=== PATIENT | female | born 1995 | race Caucasian/White ===

== ENCOUNTER 2016-10-27 17:31 | Outpatient (CLI) | payer SELFPAY ==
[2016-10-27 18:07] VITALS: BP 116/57; PULSE 82; RESP 16; TEMP 98
[2016-10-27 18:11] LABS: Appearance,Urine Clear (Clear); Bilirubin,Urine Negative (Negative); Glucose,Urine (UA) Negative (Negative); Ketones,Urine Trace (Negative); Leukocyte Esterase,Urine Negative (Negative); Nitrite,Urine Negative (Negative); Protein,Urine Negative (Negative); Specific Gravity,Urine 1.006 (1.001-1.035); UA Billing (MACRO vs. MICRO) CHEM; Urobilinogen,Urine <2.0 mg/dL (<2.0)
--- NOTE | 2016-12-03 13:16 | P.MSEPDOC ---
Presenting Problems - Arrival Data Date of Arrival on Unit: 10/27/16 Time of Arrival on Unit: 17:31 Mode of Transport: Ambulatory - Complaint OB-Reason for Admission/Chief Complaint: Pain, Signs/Symptoms UTI Comment: abd pain Medical History - Information : 1 Para: 0 Term: 0 : 0 Abortions: Spontaneous or Elective: 0 Number of Living Children: 0 - Gestational Age Expected Date of Delivery: 02/19/17 Gestational Age by MEGHNA (wks/days): 28 Weeks and 6 Days Review of Systems - Review of Systems Constitutional: No problems Breast: No problems ENT: No problems Cardiovascular: No problems Respiratory: No problems Gastrointestinal: No problems Genitourinary: No problems Musculoskeletal: No problems Neurological: No problems Skin: No problems Vital Signs - Temperature Temperature: 98.0 F Temperature Source: Oral - Pulse Right Brachial Pulse Rate: 82 Pulse Assessment Method: Automatic Cuff - Respirations Respiratory Rate: 16 Oxygen Delivery Method: Room Air O2 Sat by Pulse Oximetry: 97 - Blood Pressure Right Arm Blood Pressure: 116/57 Blood Pressure Mean: 76 Blood Pressure Source: Automatic Cuff Medical Screen Scoring (Pre) - Assessment Baseline FHR: 150 Heart Rate - NICHD Category: Category I (Normal) = 0 - Total Score Total Score (Pre): 0 - Level of Risk Level of Risk: Low (0-5) Physician Notification (Pre) - Physician Notified Physician Notified Date: 10/27/16 Physician Notified Time: 18:00 Spoke With: Lulu Hope Order Received: Yes - Notification Comment Comment: order received for UA Disposition - Disposition OB Disposition: Discharge to home Discharge Date: 10/27/16 Discharge Time: 18:26 I agree with the RN Medical Screening Exam: Yes Risk & Benefit of care provided described in d/c instruction: Yes Diagnosis: URINARY TRACT INFECTION, SITE NOT SPECIFIED
== END 2016-10-27 18:26 | disposition home or self-care (01) ==
LOC: FBPOP 17:31
PROVIDERS: ATTEND Obstetrics & Gynecology
DX: O23.43 Unspecified infection of urinary tract in pregnancy, third trimester (principal); Z3A.28 28 weeks gestation of pregnancy
CPT/HCPCS: 81003; 99213

== ENCOUNTER 2016-11-09 20:44 | Outpatient (CLI) | payer SELFPAY ==
[2016-11-09 21:20] VITALS: BP 121/61; PULSE 82; RESP 16; TEMP 98
[2016-11-09 21:26] LABS: Appearance,Urine Clear (Clear); Bilirubin,Urine Negative (Negative); Glucose,Urine (UA) Negative (Negative); Ketones,Urine 3+ (Negative); Leukocyte Esterase,Urine Negative (Negative); Nitrite,Urine Negative (Negative); PH, Urine 6.5 (5.0-8.0); Protein,Urine Negative (Negative); Specific Gravity,Urine 1.007 (1.001-1.035); UA Billing (MACRO vs. MICRO) CHEM; Urobilinogen,Urine <2.0 mg/dL (<2.0)
--- NOTE | 2016-11-10 07:10 | P.MSEPDOC ---
Presenting Problems - Arrival Data Date of Arrival on Unit: 11/09/16 Time of Arrival on Unit: 20:44 Mode of Transport: Ambulatory - Complaint OB-Reason for Admission/Chief Complaint: Pain Comment: sharp constant b/l flank and suprapubic pain since early this AM. Medical History - Information : 1 Para: 0 Term: 0 : 0 Abortions: Spontaneous or Elective: 0 Number of Living Children: 0 - Gestational Age Expected Date of Delivery: 02/19/17 Gestational Age by MEGHNA (wks/days): 25 Weeks and 4 Days - History Complications: Other Comment: UTIs x 2 Review of Systems - Review of Systems Constitutional: No problems Breast: No problems ENT: No problems Cardiovascular: No problems Respiratory: No problems Gastrointestinal: No problems Genitourinary: Dysuria Musculoskeletal: No problems Neurological: No problems Skin: No problems Vital Signs - Temperature Temperature: 98.0 F Temperature Source: Oral - Pulse Right Sitting Brachial Pulse Rate: 82 Pulse Assessment Method: Automatic Cuff - Respirations Respiratory Rate: 16 Oxygen Delivery Method: Room Air - Blood Pressure Right Arm Sitting Blood Pressure: 121/61 Blood Pressure Mean: 81 Blood Pressure Source: Automatic Cuff Medical Screen Scoring (Pre) - Cervical Exam Dilation: Exam Deferred Effacement: Exam Deferred Membranes: Intact - Uterine Contractions Frequency: N/A Duration: N/A Intensity: N/A - Maternal Vital Signs Maternal Temperature: N/A Signs of Preeclampsia: N/A Maternal Respirations: N/A - Maternal Trauma Maternal Trauma: N/A - Assessment Baseline FHR: 150 Heart Rate - NICHD Category: Category I (Normal) = 0 Position: N/A Station: N/A - Total Score Total Score (Pre): 0 - Level of Risk Level of Risk: Low (0-5) Physician Notification (Pre) - Physician Notified Physician Notified Date: 11/09/16 Physician Notified Time: 21:03 Physician/Practitioner Notifed:: dr augustin Spoke With: dr augustin New Order Received: Yes - Notification Comment Comment: UA and culture Disposition - Disposition OB Disposition: Discharge to home Discharge Date: 11/09/16 Discharge Time: 21:33 I agree with the RN Medical Screening Exam: Yes Risk & Benefit of care provided described in d/c instruction: Yes Diagnosis: LOW BACK PAIN
== END 2016-11-09 21:40 | disposition home or self-care (01) ==
LOC: FBPOP 20:44
PROVIDERS: ATTEND Obstetrics & Gynecology
DX: O99.89 Other specified diseases and conditions complicating pregnancy, childbirth and the puerperium (principal); M54.5 Low back pain; Z3A.25 25 weeks gestation of pregnancy
CPT/HCPCS: 81003; 87086; 99213

== ENCOUNTER 2016-11-12 20:03 | Outpatient (CLI) | payer SELFPAY ==
[2016-11-12] MEDS ORDERED: ceFAZolin 2 GM in SODIUM CHLORIDE 0.9% 100 ML IVPB ONE (20:33)
[2016-11-12] MEDS ORDERED: LACTATED RINGERS 1,000 ML IV SCH (20:45)
[2016-11-12 21:20] LABS: Appearance,Urine Cloudy (Clear); Bacteria,Urine Moderate /hpf; Bilirubin,Urine Negative (Negative); Glucose,Urine (UA) 2+ (Negative); Ketones,Urine Negative (Negative); Leukocyte Esterase,Urine Small (Negative); Nitrite,Urine Negative (Negative); PH, Urine 6.5 (5.0-8.0); Particle Count 13383; Protein,Urine Negative (Negative); Specific Gravity,Urine 1.002 (1.001-1.035); Squamous Epithelial Cell,Urine 24 /hpf (0-4); UA Billing (MACRO vs. MICRO) MICRO; Urobilinogen,Urine <2.0 mg/dL (<2.0); WBC,Urine 11 /hpf (0-5)
[2016-11-12 22:07] VITALS: BP 107/58; PULSE 68; RESP 16; TEMP 96.1
--- NOTE | 2016-11-13 11:35 | P.MSEPDOC ---
Presenting Problems - Arrival Data Date of Arrival on Unit: 11/12/16 Time of Arrival on Unit: 20:00 Mode of Transport: EMS - Complaint OB-Reason for Admission/Chief Complaint: Pain, Signs/Symptoms UTI Comment: UTI x2 weeks, incarcerated, DOM Medical History - Information : 1 Para: 0 Term: 0 : 0 Abortions: Spontaneous or Elective: 0 Number of Living Children: 0 - Gestational Age Expected Date of Delivery: 02/19/17 Gestational Age by MEGHNA (wks/days): 26 Weeks and 0 Days - History Complications: Hx. Substance Abuse Comment: DOM, incarcerated, seeks [facility] at [facility] Review of Systems - Review of Systems Constitutional: No problems Breast: No problems ENT: No problems Cardiovascular: No problems Respiratory: No problems Gastrointestinal: No problems Genitourinary: No problems Musculoskeletal: No problems Neurological: No problems Skin: No problems Vital Signs - Temperature Temperature: 96.1 F Temperature Source: Temporal Artery Scan - Pulse Right Pulse Rate: 68 Pulse Assessment Method: Automatic Cuff - Respirations Respiratory Rate: 16 - Blood Pressure Right Arm Blood Pressure: 107/58 Blood Pressure Mean: 74 Blood Pressure Source: Automatic Cuff Medical Screen Scoring (Pre) - Cervical Exam Dilation: Exam Deferred Effacement: Exam Deferred - Uterine Contractions Frequency: N/A Duration: N/A Intensity: N/A - Maternal Vital Signs Maternal Temperature: N/A - Maternal Trauma Maternal Trauma: N/A - Assessment Baseline FHR: 150 Heart Rate - NICHD Category: Category I (Normal) = 0 NST: Reactive Position: N/A - Total Score Total Score (Pre): 0 - Level of Risk Level of Risk: Low (0-5) Physician Notification (Pre) - Physician Notified Physician Notified Date: 11/12/16 Physician Notified Time: 20:25 Physician/Practitioner Notifed:: Dr Hsieh - Notification Comment Comment: reported on hx, UA results from 11/09, rx ordered at routine OB appt yesterday. orders to obtain another UA, C&S, UDS, start 2gm IVPB Kefzol. if UA is clear, pt may be d/c'd back to care home Medical Screen Scoring (Post) - Cervical Exam Dilation: Exam Deferred Effacement: Exam Deferred - Uterine Contractions Frequency: N/A Duration: N/A Intensity: N/A - Maternal Vital Signs Maternal Temperature: N/A Maternal Blood Pressure: N/A Signs of Preeclampsia: N/A - Maternal Trauma Maternal Trauma: N/A - Assessment Heart Rate: 140 Heart Rate - NICHD Category: Category I (Normal) = 0 NST: Reactive Position: N/A - Total Score Total Score (Post): 0 - Post Treatment Level of Risk Post Treatment Level of Risk: Low (0-5) Physician Notification (Post) - Physician Notified Physician Notified Date: 11/12/16 Physician Notified Time: 22:06 Disposition - Disposition OB Disposition: Transfer to other dept./facility Transferred to:: [facility] Discharge Date: 11/12/16 Discharge Time: 22:06 I agree with the RN Medical Screening Exam: Yes Risk & Benefit of care provided described in d/c instruction: Yes Diagnosis: URINARY TRACT INFECTION, SITE NOT SPECIFIED
== END 2016-11-12 22:10 ==
LOC: FBPOP 20:03
PROVIDERS: ATTEND Obstetrics & Gynecology
DX: O23.42 Unspecified infection of urinary tract in pregnancy, second trimester (principal); Z3A.26 26 weeks gestation of pregnancy
CPT/HCPCS: 99214; 96365; 96366; 81001; 80306; 87086; J0690; 96361